=== PATIENT | female | born 1955 | race Caucasian/White ===

== ENCOUNTER 2018-10-03 15:41 | Emergency (ER) | payer MEDICARE, MEDICAID, SELFPAY ==
[2018-10-03 15:42] VITALS: BP 124/63; PULSE 69; RESP 18; TEMP 36.7; O2SAT 96; BMI 25.7
--- NOTE | 2018-10-03 15:51 | PC.NURSE ---
PT STATES SHE DOES NOT HAVE A RIDE HOME BUT SHE IS MAKING CALLS
[2018-10-03 15:52] LABS: Microscopic, Urine URINE MICROSCOPIC (MICROSCOPIC)
[2018-10-03 16:01] LABS: Appearance,Urine CLEAR (Clear); Bilirubin,Urine Negative (Negative); Blood, Urine 3+ (Negative); Color,Urine YELLOW (Yellow); Glucose,Urine (UA) 3+ (Negative); Ketones,Urine Negative (Negative); Leukocyte Esterase,Urine Negative (Negative); Nitrate,Urine Negative (Negative); Protein,Urine TRACE (Negative); Specific Gravity, Urine >= 1.030 (1.005-1.030); Urobilinogen,Urine 0.2 EU/dl (0.2)
[2018-10-03 16:11] LABS: Amphetamine/Metha Screen,Urine Positive ng/mL (<1000); Barbiturates Screen,Urine Negative ng/mL (<200); Benzodiazepines Screen,Urine Negative ng/mL (<200); Cannabinoid Screen,Urine Positive ng/mL (<50); Cocaine Screen,Urine Negative ng/mL (<300); Methadone Screen,Urine Negative ng/mL (<300); Opiate Screen,Urine Negative ng/mL (<300); Phencyclidine Screen,Urine Negative ng/mL (<25)
[2018-10-03 16:39] LABS: Bacteria,Urine 1+ /lpf; RBC,Urine 20-50 #/hpf (0-3); Squamous Epithelial Cell,Urine Occasional #/hpf (0-5); WBC,Urine 20-50 #/hpf (0-3)
--- NOTE | 2018-10-03 19:05 | [facility].EDGENADL ---
ED Disposition Clinical Impression: Urinary tract infection, Cystitis Disposition: Home, Self-Care Condition on Discharge: Good Instructions: DI for Urinary Tract Infection (UTI) Prescriptions: cephALEXin [Keflex 500mg Cap] 1,000 mg PO BID 7 Days #28 cap Phenazopyridine HCl [Pyridium 200mg Tablet] 200 pow PO TID #6 tab Referrals: Luis Angel Blanco [Primary Care Provider] - Time of Disposition: 19:08 - Critical Care Critical Care Time: No Attestation: On 10/03/18, the high probability of a clinically significant, sudden or life threatening deterioration of the following system(s) required my full and direct attention, intervention and personal management. The time I documented below is in addition to time spent performing reported procedures but includes the following listed in this critical care notation. Medical Decision Making - Medical Records Medical records reviewed: Yes: I reviewed the patient's medical records. - Mikey Inquiry Pt receiving controlled substance: No Mikey was queried for this patient: No Vital Signs: 10/03/18 15:42 Temperature 98.1 F Temperature Source Oral Pulse Rate [Right Apical] 69 Respiratory Rate 18 Blood Pressure [Right Arm] 124/63 Blood Pressure Mean [Right Arm] 83 02 Sat by Pulse Oximetry 96 Oxygen Delivery Method Room Air - Lab Data Lab results reviewed: Yes: I reviewed the patient's lab results. Lab Results 10/03/18 15:45: Urine Color Yellow, Urine Appearance Clear, Urine pH 6.0, Ur Specific [place] >= 1.030, Urine Protein Trace, Urine Glucose (UA) 3+, Urine Ketones Negative, Urine Blood 3+, Urine Nitrate Negative, Urine Bilirubin Negative, Urine Urobilinogen 0.2, Ur Leukocyte Esterase Negative, Urine RBC 20-50, Urine WBC 20-50, Ur Squamous Epith Cells Occasional, Urine Bacteria 1+ 10/03/18 15:45: Urine Opiates Screen Negative, Urine Methadone Screen Negative, Ur Barbituates Screen Negative, Ur Phencyclidine Scrn Negative, Ur Amphetamines Screen Positive H, U Benzodiazepines Scrn Negative, Urine Cocaine Screen Negative, U Marijuana (THC) Screen Positive H Orders (Tests/Meds): ED MEDICATIONS Discontinued Medications Generic Name Dose Route Start Last Admin Trade Name Freq PRN Reason Stop Dose Admin Ceftriaxone Sodium 1 gm 10/03/18 19:07 Rocephin 1gm Vial IM 10/03/18 19:08 ONCE ONE Protocol Lidocaine HCl 0 ml 10/03/18 19:07 Lidocaine 1% 10ml Mdv IM 10/03/18 19:08 ONCE ONE ORDERS Category Date Time Status Urine Culture Stat Micro 10/03/18 15:45 Received General Adult HPI - General Chief complaint: Urogenital-Female Stated complaint: URO Time Seen by Provider: 10/03/18 19:05 Mode of Arrival: EMS Source of Information: Patient Limitations: No Limitations Description of Symptoms (Recalled from ER Triage Doc. by RN): PT C/O BURNING WITH URINATION AND BLOOD IN URINE FOR 1 DAY - Related Data Previous Rx's Medication Instructions Recorded Phenazopyridine HCl [Pyridium 200 pow PO TID #6 tab 10/03/18 200mg Tablet] cephALEXin [Keflex 500mg Cap] 1,000 mg PO BID 7 Days #28 cap 10/03/18 Allergies Allergy/AdvReac Type Severity Reaction Status Date / Time No Known Allergies Allergy Verified 10/03/18 15:45 [facility] History - Hepatitis A Screen Drug use history?: No High risk sexual behaviors?: No History of sexually transmitted infection?: No Currently employed?: No Childcare worker?: No Do you have indoor plumbing?: Yes Do you have electricity?: Yes Attestation statement:: This patient has been screened for Hepatitis A risk factors. - Social History Alcohol Intake: never Occupational Status: unemployed - Psychiatric History Expresses thoughts of harming self/others: None Suicide Plan Description: No Plan ROS Obtained: Yes All systems reviewed & no additional complaints - Constitutional Constitutional: Reports chills, Denies fever(s) - Cardiovascular Cardiovascular: Amauri
--- NOTE | 2018-10-03 19:09 | ED_ITS ---
ED Disposition Clinical Impression: Urinary tract infection, Cystitis Disposition: Home, Self-Care Condition on Discharge: Good Instructions: DI for Urinary Tract Infection (UTI) Prescriptions: cephALEXin [Keflex 500mg Cap] 1,000 mg PO BID 7 Days #28 cap Phenazopyridine HCl [Pyridium 200mg Tablet] 200 pow PO TID #6 tab Referrals: Luis Angel Blanco [Primary Care Provider] - Time of Disposition: 19:08 - Critical Care Critical Care Time: No Attestation: On 10/03/18, the high probability of a clinically significant, sudden or life threatening deterioration of the following system(s) required my full and direct attention, intervention and personal management. The time I documented below is in addition to time spent performing reported procedures but includes the following listed in this critical care notation. Medical Decision Making - Medical Records Medical records reviewed: Yes: I reviewed the patient's medical records. - Mikey Inquiry Pt receiving controlled substance: No Mikey was queried for this patient: No Vital Signs: 10/03/18 15:42 Temperature 98.1 F Temperature Source Oral Pulse Rate [Right Apical] 69 Respiratory Rate 18 Blood Pressure [Right Arm] 124/63 Blood Pressure Mean [Right Arm] 83 02 Sat by Pulse Oximetry 96 Oxygen Delivery Method Room Air - Lab Data Lab results reviewed: Yes: I reviewed the patient's lab results. Lab Results 10/03/18 15:45: Urine Color Yellow, Urine Appearance Clear, Urine pH 6.0, Ur Specific [place] >= 1.030, Urine Protein Trace, Urine Glucose (UA) 3+, Urine Ketones Negative, Urine Blood 3+, Urine Nitrate Negative, Urine Bilirubin Negative, Urine Urobilinogen 0.2, Ur Leukocyte Esterase Negative, Urine RBC 20- 50, Urine WBC 20-50, Ur Squamous Epith Cells Occasional, Urine Bacteria 1+ 10/03/18 15:45: Urine Opiates Screen Negative, Urine Methadone Screen Negative, Ur Barbituates Screen Negative, Ur Phencyclidine Scrn Negative, Ur Amphetamines Screen Positive H, U Benzodiazepines Scrn Negative, Urine Cocaine Screen Negative, U Marijuana (THC) Screen Positive H Orders (Tests/Meds): ED MEDICATIONS Discontinued Medications Generic Name Dose Route Start Last Admin Trade Name Freq PRN Reason Stop Dose Admin Ceftriaxone Sodium 1 gm 10/03/18 19:07 Rocephin 1gm Vial IM 10/03/18 19:08 ONCE ONE Protocol Lidocaine HCl 0 ml 10/03/18 19:07 Lidocaine 1% 10ml Mdv IM 10/03/18 19:08 ONCE ONE ORDERS Category Date Time Status Urine Culture Stat Micro 10/03/18 15:45 Received General Adult HPI - General Chief complaint: Urogenital-Female Stated complaint: URO Time Seen by Provider: 10/03/18 19:05 Mode of Arrival: EMS Source of Information: Patient Limitations: No Limitations Description of Symptoms (Recalled from ER Triage Doc. by RN): PT C/O BURNING WITH URINATION AND BLOOD IN URINE FOR 1 DAY - Related Data Previous Rx's Medication Instructions Recorded Phenazopyridine HCl [Pyridium 200 pow PO TID #6 tab 10/03/18 200mg Tablet] cephALEXin [Keflex 500mg Cap] 1,000 mg PO BID 7 Days #28 cap 10/03/18
[2018-10-03 19:53] VITALS: BP 117/67; PULSE 68; RESP 18; TEMP 36.4; O2SAT 99
[2018-10-03 20:04] VITALS: BP 120/63; PULSE 71; RESP 18; TEMP 36.7; O2SAT 99
--- NOTE | 2018-10-03 20:36 | PC.NURSE ---
Pt is waiting on her ride in her room, she has no needs or c/o voiced at this time.
[2018-10-03 21:00] VITALS: BP 135/63; PULSE 56; RESP 18; O2SAT 97
[2018-10-03 22:00] VITALS: BP 108/57; PULSE 88; RESP 17; O2SAT 96
== END 2018-10-03 22:54 | disposition home or self-care (01) ==
PROVIDERS: Emergency Provider Emergency Medicine; PCP Orthopaedic Surgery
DX: N30.01 Acute cystitis with hematuria (principal); F15.11 Other stimulant abuse, in remission
CPT/HCPCS: 80305; 81001; 87086; 87088; 87186; 96372; 99283